=== PATIENT | male | born 1940 | race Caucasian/White ===

== ENCOUNTER 2022-03-15 11:37 | Inpatient (IN) | payer MEDICARE, OTHER ==
[~2022-03-15] VITALS: Ht 182.9 cm; Wt 100.3 kg
[2022-03-15] MEDS ORDERED: SODIUM CHLORIDE 0.9% 2,400 ML IV ONE (11:45)
[2022-03-15] MEDS ORDERED: ACETAMINOPHEN 1000 MG/ISO-OSM 100 ML IV ONE (11:45)
[2022-03-15] MEDS ORDERED: PIPERACILLIN/TAZO 3.375 GM/D5W 50 ML IV ONE (11:45)
[2022-03-15] MEDS ORDERED: CHOL25TA4 PO (11:51)
[2022-03-15] MEDS ORDERED: LEVE500T20 PO (11:51)
[2022-03-15] MEDS ORDERED: DONE-51 PO (11:51)
[2022-03-15] MEDS ORDERED: PANT-31 PO (11:51)
[2022-03-15] MEDS ORDERED: SENN-295 PO (11:51)
[2022-03-15] MEDS ORDERED: LISI-892 PO (11:51)
[2022-03-15 11:58] LABS: BASOPHILS % (AUTO) 0.5 % (0.0-2.0); EOSINOPHILS % (AUTO) 0.2 % (1.0-6.0); HEMATOCRIT 30.9 % (41-53); HEMOGLOBIN 9.8 g/dL (13.5-17.5); LYMPHOCYTES # (AUTO) 1.8 K/uL (1.0-4.8); LYMPHOCYTES % (AUTO) 14.6 % (22.0-44.0); MEAN CORPUSCULAR HEMOGLOBIN 30.4 pg (26.0-34.0); MEAN CORPUSCULAR HGB CONC 31.6 G/dL (31.0-37.0); MEAN CORPUSCULAR VOLUME 96 fL (80-100); MONOCYTES # (AUTO) 1.6 K/uL (0.1-1.0); NEUTROPHILS % (AUTO) 71.7 % (40.0-70.0); PLATELET COUNT (AUTO) 215 K/uL (150-450); RED BLOOD CELL COUNT(AUTO) 3.21 MIL/uL (4.50-5.90); RED CELL DISTRIBUTION WIDTH 22.7 % (11.5-14.5)
[2022-03-15 12:01] LABS: COVID AG,FIA SOURCE NASOPHARYNGEAL
[2022-03-15 12:03] LABS: ABG CARBOXYHEMOGLOBIN 0.4 % (0.0-1.5); ABG HCO3 27.1 mmol/L (22.0-26.0); ABG METHEMOGLOBIN 0.1 % (0.0-1.5); ABG OXYGEN CONTENT 15.5 mL/dL (15.0-23.0); ABG OXYGEN SATURATION 99.6 % (95.0-98.0); ABG OXYHEMOGLOBIN 99.1 % (94.0-100.0); ABG PCO2 42 mmHg (35-45); ABG PH 7.432 (7.35-7.450); ABG TOTAL HEMOGLOBIN 10.7 G/dL (12.0-18.0); PO2, ARTERIAL BG 266.5 mmHg (71.0-79.0); SOURCE, BLOOD GAS ARTERIAL; TEMPERATURE, FAHRENHEIT, BG 101.8 FAHREN (96.0-98.6)
[2022-03-15 12:04] LABS: ABG A-A DIFF O2 399.7 mmHg (10-20.0); SITE, BLOOD GAS RT RADIAL; SPONTANEOUS VT, BG 787 ml
[2022-03-15 12:06] LABS: O2 DEVICE,BLOOD GAS BIPAP (ROOM AIR)
[2022-03-15 12:09] LABS: ANION GAP 8 mmol/L (8-16); CALCIUM, TOTAL 8.8 mg/dL (8.8-10.5); CARBON DIOXIDE 29 mmol/L (22-29); CHLORIDE 106 mmol/L (98-107); CREATININE 1.51 mg/dL (0.60-1.30); GLOMERULAR FILTR. RATE CALC 44 mL/min (>60); GLUCOSE,RANDOM 164 mg/dL (70-110); POTASSIUM 4.1 mmol/L (3.5-5.1); SODIUM SERUM 143 mmol/L (136-145); UREA NITROGEN, BLOOD 27 mg/dL (7-18)
[2022-03-15] MEDS: OXYGEN THERAPY IH SCH ×2 (12:11→19:16)
[2022-03-15 12:16] LABS: B-TYPE NATRIURETIC PEPTIDE 105 pg/mL (0-100)
[2022-03-15 12:17] LABS: PLATELET MORPHOLOGY COMMENT LARGE PLTS PRESENT
[2022-03-15 12:20] LABS: INFLUENZA TYPE A NEGATIVE FOR TYPE A (NEGATIVE); INFLUENZA TYPE B NEGATIVE FOR TYPE B (NEGATIVE)
[2022-03-15 12:24] LABS: ALANINE AMINOTRANSFERASE 33 U/L (12-78); ALBUMIN 3.3 g/dL (3.4-5.0); ALKALINE PHOSPHATASE 71 U/L (46-116); ASPARTATE AMINOTRANSFERASE 31 U/L (15-37); BILIRUBIN,TOTAL 1.3 mg/dL (0.1-1.0); LIPASE 25 U/L (73-393); TOTAL PROTEIN, SERUM 6.8 g/dL (6.4-8.2)
[2022-03-15 12:28] LABS: LACTIC ACID 2.3 mmol/L (0.4-2.0)
[2022-03-15] MEDS ORDERED: ONDANSETRON HCL 4 MG/2 ML VIAL IVP PRN (14:00)
[2022-03-15] MEDS ORDERED: BISACODYL 10 MG RECTAL RECTAL SUPPOSITORY PR PRN (14:00)
[2022-03-15] MEDS ORDERED: MORPHINE SULFATE 2 MG/ML SYRINGE IVP PRN (14:00)
[2022-03-15] MEDS ORDERED: ACETAMINOPHEN 325 MG TABLET PO PRN (14:00)
[2022-03-15] MEDS ORDERED: SODIUM CHLORIDE 0.9% 1,000 ML IV ONE (15:00)
[2022-03-15] MEDS: LevETIRAcetam 500 MG in DEXTROSE 5%-WATER 100 ML IV SCH (15:06)
[2022-03-15] MEDS: HEPARIN SODIUM,PORCINE 5,000 UNITS/ML VIAL SQ SCH ×2 (16:05→23:45)
[2022-03-15] MEDS: PIPERACILLIN/TAZO 3.375 GM/D5W 50 ML IV SCH (17:07)
[2022-03-15 21:54] LABS: APPEARANCE,URINE CLEAR (CLEAR); BILIRUBIN,URINE NEGATIVE (NEGATIVE); GLUCOSE, URINE (UA) NEGATIVE (NEGATIVE); KETONES,URINE TRACE mg/dL (NEGATIVE); LEUKOCYTE ESTERASE ,URINE NEGATIVE (NEGATIVE); NITRATE,URINE NEGATIVE (NEGATIVE); OCCULT BLOOD,URINE SMALL (NEGATIVE); PH,URINE 5.5 (5.0-8.0); PROTEIN,URINE 30-70 mg/dL (NEGATIVE); SPECIFIC GRAVITIY, URINE 1.032 (1.003-1.030); UROBILINOGEN,URINE <=1.0 mg/dL (<=1.0)
[2022-03-15 22:03] LABS: BACTERIA,URINE None Seen /HPF (None Seen); RBC,URINE 0-2 /HPF (0-2); WBC,URINE None Seen /HPF (0-5)
[2022-03-16] VITALS (8 sets, daily range): BP systolic 118–144; BP diastolic 62–100
[2022-03-16] MEDS: PIPERACILLIN/TAZO 3.375 GM/D5W 50 ML IV SCH ×5 (01:55→23:39)
[2022-03-16] MEDS: LevETIRAcetam 500 MG in DEXTROSE 5%-WATER 100 ML IV SCH ×2 (03:12→13:57)
[2022-03-16] MEDS: OXYGEN THERAPY IH SCH ×2 (08:26→19:33)
[2022-03-16] MEDS: HEPARIN SODIUM,PORCINE 5,000 UNITS/ML VIAL SQ SCH ×3 (08:26→23:40)
[2022-03-16] MEDS: PANTOPRAZOLE SODIUM 40 MG/VIAL IVP SCH (08:26)
[2022-03-16] MEDS: DEXTROSE 5%-0.45% SODIUM CHL 1,000 ML IV SCH (10:47)
[2022-03-16 12:03] LABS: ANION GAP 5 mmol/L (8-16); CARBON DIOXIDE 28 mmol/L (22-29); CHLORIDE 108 mmol/L (98-107); CREATININE 1.11 mg/dL (0.60-1.30); GLUCOSE,RANDOM 101 mg/dL (70-110); POTASSIUM 4.5 mmol/L (3.5-5.1); SODIUM SERUM 141 mmol/L (136-145); UREA NITROGEN, BLOOD 26 mg/dL (7-18)
[2022-03-16 12:06] LABS: GLOMERULAR FILTR. RATE CALC > 60 mL/min (>60)
[2022-03-16 13:10] LABS: BASOPHILS % (AUTO) 0.7 % (0.0-2.0); EOSINOPHILS % (AUTO) 0.3 % (1.0-6.0); HEMATOCRIT 24.6 % (41-53); HEMOGLOBIN 7.8 g/dL (13.5-17.5); LYMPHOCYTES # (AUTO) 1.4 K/uL (1.0-4.8); LYMPHOCYTES % (AUTO) 20.4 % (22.0-44.0); MEAN CORPUSCULAR HEMOGLOBIN 31.3 pg (26.0-34.0); MEAN CORPUSCULAR HGB CONC 31.8 G/dL (31.0-37.0); MEAN CORPUSCULAR VOLUME 98 fL (80-100); MONOCYTES # (AUTO) 0.6 K/uL (0.1-1.0); MONOCYTES % (AUTO) 9.2 % (2.0-9.0); NEUTROPHILS # (AUTO) 4.7 K/uL (1.8-7.7); NEUTROPHILS % (AUTO) 69.4 % (40.0-70.0); PLATELET COUNT (AUTO) 138 K/uL (150-450); RED CELL DISTRIBUTION WIDTH 23.2 % (11.5-14.5)
[2022-03-17] VITALS (7 sets, daily range): BP systolic 130–161; BP diastolic 74–98
[2022-03-17] MEDS: DEXTROSE 5%-0.45% SODIUM CHL 1,000 ML IV SCH ×2 (03:55→21:50)
[2022-03-17] MEDS: LevETIRAcetam 500 MG in DEXTROSE 5%-WATER 100 ML IV SCH ×2 (03:55→14:18)
[2022-03-17] MEDS: PIPERACILLIN/TAZO 3.375 GM/D5W 50 ML IV SCH (06:15)
[2022-03-17 07:33] LABS: HEMATOCRIT 26.5 % (41-53); HEMOGLOBIN 8.3 g/dL (13.5-17.5); MEAN CORPUSCULAR HEMOGLOBIN 30.9 pg (26.0-34.0); MEAN CORPUSCULAR HGB CONC 31.4 G/dL (31.0-37.0); MEAN CORPUSCULAR VOLUME 98 fL (80-100); PLATELET COUNT (AUTO) 134 K/uL (150-450); RED CELL DISTRIBUTION WIDTH 22.4 % (11.5-14.5)
[2022-03-17 07:56] LABS: BAND NEUTROPHILS % (MANUAL) 1 % (0-5); LYMPHOCYTES % (MANUAL) 33 % (22-44); MONOCYTES % (MANUAL) 4 % (2-9); SEGMENTED NEUTROPHILS % 62 % (40-70)
[2022-03-17] MEDS: HEPARIN SODIUM,PORCINE 5,000 UNITS/ML VIAL SQ SCH ×2 (07:58→16:00)
[2022-03-17] MEDS: PANTOPRAZOLE SODIUM 40 MG/VIAL IVP SCH (07:58)
[2022-03-17] MEDS: OXYGEN THERAPY IH SCH (08:12)
[2022-03-17] MEDS ORDERED: MORPHINE SULFATE 2 MG/ML SYRINGE IVP PRN (12:15)
[2022-03-17] MEDS ORDERED: LORazepam 2 MG/ML VIAL IVP ONE (21:30)
[2022-03-18] MEDS: ATROPINE SULFATE 1% 5 ML OPHTHALMIC SOLUTION SL PRN (00:03)
[2022-03-18] MEDS ORDERED: SCOPOLAMINE HYDROBROMIDE 1 MG/72 HOUR PATCH TD SCH (09:00)
[2022-03-18 13:20] VITALS: BP 164/100
[2022-03-18] MEDS: LORazepam 2 MG/ML VIAL IVP PRN ×3 (13:31→20:25)
[2022-03-18] MEDS: MORPHINE SULFATE 2 MG/ML SYRINGE IVP PRN (15:06)
[2022-03-18 20:00] VITALS: BP 137/79
[2022-03-19] VITALS (7 sets, daily range): BP systolic 133–163; BP diastolic 61–110
[2022-03-19] MEDS: MORPHINE SULFATE 2 MG/ML SYRINGE IVP PRN ×3 (00:13→16:08)
[2022-03-19] MEDS: LORazepam 2 MG/ML VIAL IVP PRN ×3 (03:17→12:44)
[2022-03-20 04:37] VITALS: BP 136/87
[2022-03-20 08:09] VITALS: BP 137/83
[2022-03-20] MEDS: LORazepam 2 MG/ML VIAL IVP PRN (12:50)
[2022-03-20] MEDS: MORPHINE SULFATE 2 MG/ML SYRINGE IVP PRN ×2 (15:17→17:36)
[2022-03-20 16:00] VITALS: BP 141/58
[2022-03-20 17:33] VITALS: BP 171/96
[2022-03-20 19:35] VITALS: BP 155/113
[2022-03-21 04:00] VITALS: BP 120/70
[2022-03-21 07:45] VITALS: BP 148/85
[2022-03-21] MEDS: MORPHINE SULFATE 2 MG/ML SYRINGE IVP PRN ×4 (10:21→23:56)
[2022-03-21] MEDS: LORazepam 2 MG/ML VIAL IVP PRN (14:48)
[2022-03-21] MEDS: ATROPINE SULFATE 1% 5 ML OPHTHALMIC SOLUTION SL PRN ×3 (15:35→23:56)
[2022-03-21 16:00] VITALS: BP 148/85
[2022-03-21 20:00] VITALS: BP 133/77
[2022-03-21] MEDS ORDERED: TAMS-13 PO (20:45)
[2022-03-21] MEDS ORDERED: AMLO5TAB66 PO (20:45)
[2022-03-22] MEDS: LORazepam 2 MG/ML VIAL IVP PRN (03:01)
[2022-03-22] MEDS: ATROPINE SULFATE 1% 5 ML OPHTHALMIC SOLUTION SL PRN ×3 (03:02→08:20)
[2022-03-22] MEDS: MORPHINE SULFATE 2 MG/ML SYRINGE IVP PRN ×4 (03:27→11:41)
[2022-03-22 04:19] VITALS: BP 144/91
[2022-03-22] MEDS ORDERED: ACETAMINOPHEN 650 MG RECTAL SUPPOSITORY PR PRN (04:30)
[2022-03-22 07:09] VITALS: BP 144/78
[2022-03-22] MEDS: MORPHINE SULFATE 100 MG/NS/PF 100 ML IV PRN ×2 (14:53→18:02)
[2022-03-22 15:10] VITALS: BP 126/70
[2022-03-22 20:43] VITALS: BP 109/59
[2022-03-23 03:30] VITALS: BP 116/59
[2022-03-23 08:08] VITALS: BP 101/55
[2022-03-23 11:58] VITALS: BP 85/50
[2022-03-23 15:05] VITALS: BP 79/44
[2022-03-23 20:06] VITALS: BP 69/36
[2022-03-23] MEDS: MORPHINE SULFATE 100 MG/NS/PF 100 ML IV PRN (22:38)
== END 2022-03-24 02:00 | DRG 871 ==
LOC: EMS 11:37 → 5S 17:51 → 6N 03-17 15:55
PROVIDERS: ADMIT Internal Medicine; ATTEND Internal Medicine
PROC: 5A09357 Assistance with Respiratory Ventilation, Less than 24 Consecutive Hours, Continuous Positive Airway Pressure (ICD-10-PCS; principal; 2022-03-15)
PROC: 5A0935A Assistance with Respiratory Ventilation, Less than 24 Consecutive Hours, High Flow/Velocity Cannula (ICD-10-PCS; 2022-03-23)
DX: A41.9 Sepsis, unspecified organism (principal); J69.0 Pneumonitis due to inhalation of food and vomit; G92.8 Other toxic encephalopathy; I21.A1 Myocardial infarction type 2; J96.01 Acute respiratory failure with hypoxia; N17.9 Acute kidney failure, unspecified; Z20.822 Contact with and (suspected) exposure to COVID-19; G40.909 Epilepsy, unspecified, not intractable, without status epilepticus; Z66 Do not resuscitate; Z85.841 Personal history of malignant neoplasm of brain
CPT/HCPCS: 36600; 51702; 70450; 71045; 71250; 80048; 80053; 81001; 82805; 83605; 83690; 83735; 83880; 84484; 85007; 85025; 85027; 87040; 87804; 92610; 93005; 94660; 94799; 99291; C9113; J0131; J0712; J1644; J2060; J2270; J2543; J7030; J7060; 36415-L1; 36415-TC; U0003